=== PATIENT | female | born 2000 | race Caucasian/White ===

== ENCOUNTER 2025-02-12 06:36 | Inpatient (IN) | payer MEDICAID, SELFPAY ==
[2025-02-12] VITALS (41 sets, daily range): BP systolic 97–141; BP diastolic 37–81; PULSE 66–97; RESP 16–18; O2SAT 96–100; BMI 32.0
[2025-02-12 06:19] LABS: Hematocrit 41.0 % (36-47); Hemoglobin 13.70 g/dL (11.27-16.99); Mean Corpuscular HGB Conc 33.4 g/dL (30-55); Mean Corpuscular Hemoglobin 31.5 pg (27-33); Mean Corpuscular Volume 94.3 fl (85-98); Nucleated Red Blood Cells % 0.1 %; Platelet Count 431 10^3/cmm (157-399); Red Blood Count 4.35 10^6/uL (3.85-5.65); White Blood Count 15.67 10^3/uL (3.29-11.43)
--- NOTE | 2025-02-12 06:52 | PM.OBGYHP ---
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 Upon arrival at the hospital she was found to be in breech position. She also is known to be heterozygous for factor V Leiden deficiency. Her is otherwise been unremarkable. She received care in [place] at [facility] She states that she has had consistent care, and that otherwise there have been no complications. Thankfully she had access to her portal and we able to see her labs. Her blood type is O+. She is antibody negative. She is GBS negative. She is rubella immune. She hepatitis B negative. She is GC chlamydia negative. RPR negative. Hepatitis C negative. HIV negative. She does smoke occasionally. 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 Review of Systems General: Reports: 10 or more systems reviewed and unremarkable except in HPI and below Const: Reports: fatigue; Denies: fever(s) Eyes: Denies: change in vision Card: Denies: chest pain Musc: Reports: back pain Aaron/Lymph: Denies: easy bruising Medications/Allergies Home Medications ?Medication ?Instructions ?Recorded ?Confirmed ?Last Taken ?Type enoxaparin 40 mg/0.4 mL 40 mg SUBCUT DAILY 02/12/25 02/12/25 02/11/25 History subcutaneous syringe (Lovenox) sertraline 100 mg tablet 100 mg PO DAILY 02/12/25 02/12/25 Unknown History Vitals/I&O/Wt Last Vital Signs Pulse 70 02/12/25 05:46 BP 141/81 02/12/25 05:46 Physical Exam Const: COMMON NORMALS: patient oriented x3 and alert HENMT: COMMON NORMALS: moist oral mucous membranes HEAD & SCALP: normal to inspection Chest: COMMONS NORMALS: normal inspection of the chest Resp: COMMON NORMALS: clear to auscultation bilaterally AUSCULTATION: clear to auscultation bilaterally Cardio: COMMON NORMALS: regular rate and regular rhythm RATE: regular rate RHYTHM: regular rhythm GI: INSPECTION: Yes normal to inspection and Yes other (Gravid) Extremity: COMMON NORMALS: normal to inspection GENERAL: Yes edema (Trace) Neuro: COMMON NORMALS: patient oriented x3, moves all extremities and no sensory deficits noted SENSORIUM/ORIENTATION: Yes alert Psych: COMMON NORMALS: mental status grossly normal Skin: COMMON NORMALS: no rashes or lesions noted GENERAL SKIN EXAM: no rashes or lesions noted Data 02/12/25 06:01 Results Labs OB ([facility]): Blood Type O Positive Today Antibody Screen Negative Today Hct, (36-47) 41.0 % Today Hgb, (11.27-16.99) 13.70 g/dL Today Rho(D) Type Rh positive Today Plt Count, (157-399) 431 10^3/cmm H Today A&P Assessment and plan 1. 38 weeks gestation of : We will proceed with a section. We discussed the risk of bleeding, infection, and damage to intra-abdominal organs. They understand that her risk of bleeding is higher because she is currently on Lovenox and has been less than 12 hours since her last dose. They also understand that she is also high risk for blood clots. Because she has had recent Lovenox so she will not be a candidate for a spinal. She will require general anesthesia. 2. Spontaneous rupture of membranes: 3. Heterozygous factor V Leiden affecting in third trimester, antepartum: 4. Breech presentation: PDMP PDMP Reviewed: Not Reviewed Attestations Medical Necessity Statement*: I anticipate routine and post care. If she has any hemorrhage or bleeding concerns that could change the length of her hospital stay Coding Level of Care Code Acute Code for Chg Fwd Diagnoses 38 weeks gestation of Z3A.38 Spontaneous rupture of membranes Heterozygous factor V Leiden affecting in third trimester, antepartum O99.113; D68.51 Breech presentation O32.1XX0
--- NOTE | 2025-02-12 07:28 | ANES.PREANE2 ---
Pre-Anesthetic Assessment Height/Weight: Pulse BP O2 Del Method 70 141/81 Room Air 02/12/25 05:46 02/12/25 05:46 02/12/25 06:06 Preop Diagnosis: Active labor Was Beta Rogelio taken within 24 hours: N/A Was Clonidine taken within 24 hours: N/A Social No alcohol and No tobacco Exam alert, oriented x 3, clear to auscultation bilaterally and regular rate & rhythm Airway Submandibular: within normal limits Cervical ROM: within normal limits Mallampati: Class II Dentition: full Anesthetic Plan ASA status: 3E Anesthesia: General Other: No prior issues with anesthesia, states she has never had anesthesia , states she lost her first baby at 16 weeks Patient has heterozygous alleles for factor V Leiden. Dad status is unknown. Patient has been on subcu Lovenox 40 mg daily. Patient's last dose was at 8 PM Denies any cardiac or pulmonary issues Takes Zoloft for anxiety Labs reviewed and acceptable for procedure Type and screen performed Due to increased risk from Lovenox usage, plan for GETA with RSI Medications/Allergies Home Medications ?Medication ?Instructions ?Recorded ?Confirmed ?Last Taken ?Type enoxaparin 40 mg/0.4 mL 40 mg SUBCUT DAILY 02/12/25 02/12/25 02/11/25 History subcutaneous syringe (Lovenox) Data Anesthesia 02/12/25 06:01 Short CBC 02/12/25 Range/Units 06:01 WBC 15.67 H (3.29-11.43) 10^3/uL Hgb 13.70 (11.27-16.99) g/dL Hct 41.0 (36-47) % MCV 94.3 (85-98) fl Plt Count 431 H (157-399) 10^3/cmm Neut % (Auto) 56.8 % Neut # (Auto) 8.89 H (1.8-7.7) 10^3/uL Blood Bank 02/12/25 06:01 Blood Type O Positive Rho(D) Type Rh positive Antibody Screen Negative
--- NOTE | 2025-02-12 07:48 | PM.NBADM ---
[place] Information information: Most Recent Weight: 74.389 kg Height: 1.52 m A&P PDMP PDMP Reviewed: Not Reviewed Coding Level of Care Code Acute Code for Chg Fwd
--- NOTE | 2025-02-12 08:09 | PM.OP ---
Operative Report Date of procedure: February 12, 2025 Pre-op diagnosis: 1. 24-year-old 1 para 0-0-1-0 at 38 weeks estimated gestational age presenting with spontaneous rupture membranes and breech presentation 2. Heterozygous factor V Leiden deficiency currently on Lovenox at 40 mg daily Post-op diagnosis: Status post low-transverse section Procedure done: Lower transverse section Specimens removed/disposition: 1. Female with a weight of 6 pounds 11 ounces and Apgars of 8, 9 2. Placenta with a three-vessel cord delivered intact. Surgeon: Eder Saavedra MD Estimated blood loss (mL): 600 Procedure: The patient was brought back to the operating room where she was prepped and draped in usual sterile fashion. Anesthesia was found to be adequate. A lower transverse skin incision was then made with a #10 blade. I then dissected down to the underlying subcutaneous tissue until arriving at the prerectal fascia. The fascia was then nicked with the scalpel bilaterally. The fascial incisions were then carried laterally with Logan scissors. Attention was then turned to the superior aspect of the incision which was grasped with kochers and tented up away from the underlying rectus abdominis muscles. The muscles were then dissected away from the fascia manually, and later with Logan scissors. Attention was then turned to the inferior aspect of the incision, and the fascia was dissected away from the underlying muscle in similar fashion. The rectus abdominis muscles were then spread manually. The peritoneum was entered manually. Excellent visualization of the uterus was noted. A lower transverse uterine incision was then made with a #10 blade. Upon arriving at the intrauterine cavity, the uterine incision was then extended manually. The was noted to be in footling breech position. The baby was delivered without difficulty. There was a nuchal cord x 1. The baby was completely delivered and placed on the abdomen. The cord was then cut and clamped, and the baby was then handed to Dr. Perkins in the waiting nurse. The placenta was removed intact. The uterus was externalized. The intrauterine cavity was cleansed of any remaining debris. The uterine incision was reapproximated in 2 layers. The first layer was performed with 0 Vicryl in a running locked stitch. The second layer was an imbricating stitch also using 0 Vicryl. Finally, a single [id number] stitch was placed at the left angle of the incision. Excellent hemostasis was obtained. The uterus continued to be boggy, and we elected to treat her with Hemabate. The uterus then improved and was firm and no further bleeding was noted. The uterus was replaced into the abdomen. The peritoneum was then irrigated with warm saline. I reexamined the uterine incision and found it to be hemostatic. The rectus abdominis muscles were then reapproximated using 0 Vicryl in a running stitch. The fascia was then reapproximated using 0 Vicryl in running stitch. The subcutaneous tissue was also reapproximated using 0 Vicryl in a running stitch. The skin was reapproximated using miguel. A sterile dressing was placed. All counts were correct x2. Both the mother and baby were in stable condition.
[2025-02-12] MEDS: morphine 4 mg/mL SDV 1 mL IVP ×3 (08:45→20:20)
[2025-02-12] MEDS: oxyCODONE-APAP 5-325 mg Tablet PO ×2 (10:43→16:40)
[2025-02-12 12:30] LABS: Hematocrit 38.0 % (36-47); Hemoglobin 12.70 g/dL (11.27-16.99); Mean Corpuscular HGB Conc 33.4 g/dL (30-55); Mean Corpuscular Hemoglobin 31.3 pg (27-33); Mean Corpuscular Volume 93.6 fl (85-98); Nucleated Red Blood Cells % 0 %; Platelet Count 398 10^3/cmm (157-399); Red Blood Count 4.06 10^6/uL (3.85-5.65); White Blood Count 26.87 10^3/uL (3.29-11.43)
[2025-02-12 20:32] LABS: Hematocrit 32.2 % (36-47); Hemoglobin 10.90 g/dL (11.27-16.99); Mean Corpuscular HGB Conc 33.9 g/dL (30-55); Mean Corpuscular Hemoglobin 31.1 pg (27-33); Mean Corpuscular Volume 92.0 fl (85-98); Platelet Count 368 10^3/cmm (157-399); Red Blood Count 3.50 10^6/uL (3.85-5.65); White Blood Count 21.20 10^3/uL (3.29-11.43)
--- NOTE | 2025-02-12 22:48 | PC.NURSE ---
urinary catheter removed on 02/12/25 @ 2230, Pt tolerated well
[2025-02-13] VITALS (7 sets, daily range): BP systolic 113–127; BP diastolic 55–63; PULSE 88–118; RESP 16; TEMP 36.4–36.6
[2025-02-13] MEDS: oxyCODONE-APAP 5-325 mg Tablet PO ×4 (00:16→16:52)
[2025-02-13] MEDS: PRENATAL VIT NO.130/IRON/FOLIC 1 EACH TABLET PO (05:51)
--- NOTE | 2025-02-13 07:51 | PM.OBGYDC ---
Discharge Providers FINANCE CONSULTANT Date of Admission: 02/12/25 06:36 Date of Discharge: 02/13/25 Attending Provider at Admission: Eder Saavedra MD Attending Provider at Discharge: Eder Saavedra MD Diagnoses at Discharge Discharge Diagnosis 1. 38 weeks gestation of : 2. Spontaneous rupture of membranes: 3. Heterozygous factor V Leiden affecting in third trimester, antepartum: 4. Breech presentation: Reason for Visit Reason for Visit: pos srom Hospital Course Hospital Course The patient arrived to the hospital with spontaneous rupture membranes. Upon examination the patient was also found to be breech presentation. It been less than 12 hours since her last Lovenox injection so she was placed under general anesthesia to perform a lower transverse section. The was unremarkable. Her course has also been unremarkable. Her bleeding has been within normal limits. She been breast-feeding well. She has passed gas. She is tolerating regular diet. She has been ambulating appropriately. Information Peripartum Data: Infant Delivery Method: Physical Exam Narrative: The patient is alert. She appears comfortable. Her heart has a regular rate and rhythm with no murmurs appreciated. Lungs are clear to auscultation bilaterally. Her fundus is firm and below the umbilicus. Discharge Data Studies Completed and Pending Pending at discharge Category Date Time Status High Risk PP Hemorrhage Stat Lab 02/12/25 07:19 Received Laboratory Results WBC 21.20 10^3/uL (3.29-11.43) H 02/12/25 20:15 RBC 3.50 10^6/uL (3.85-5.65) L 02/12/25 20:15 Hgb 10.90 g/dL (11.27-16.99) L 02/12/25 20:15 Hct 32.2 % (36-47) L 02/12/25 20:15 MCV 92.0 fl (85-98) 02/12/25 20:15 MCH 31.1 pg (27-33) 02/12/25 20:15 MCHC 33.9 g/dL (30-55) 02/12/25 20:15 RDW 13.4 % (12.1-15.1) 02/12/25 20:15 Plt Count 368 10^3/cmm (157-399) 02/12/25 20:15 MPV 10.1 fL (7.4-10.4) 02/12/25 20:15 Neut % (Auto) 83.8 % 02/12/25 12:20 Lymph % (Auto) 10.0 % 02/12/25 12:20 Pitkin % (Auto) 5.0 % 02/12/25 12:20 Eos % (Auto) 0.1 % 02/12/25 12:20 Baso % (Auto) 0.2 % 02/12/25 12:20 Neut # (Auto) 22.52 10^3/uL (1.8-7.7) H 02/12/25 12:20 Lymph # (Auto) 2.7 10^3/uL (0.8-4.8) 02/12/25 12:20 Pitkin # (Auto) 1.3 10^3/uL (0.2-0.9) H 02/12/25 12:20 Eos # (Auto) 0.0 10^3/uL (0.0-0.8) 02/12/25 12:20 Baso # (Auto) 0.1 10^3/uL (0.0-0.1) 02/12/25 12:20 Nucleated RBC % (auto) 0 % 02/12/25 12:20 Nucleated RBCs # 0.0 /100WBC 02/12/25 12:20 Blood Type O Positive 02/12/25 06:01 Rho(D) Type Rh positive 02/12/25 06:01 Antibody Screen Negative 02/12/25 06:01 Vitals Last Vital Signs Pulse 88 02/13/25 05:51 Resp 16 02/13/25 05:51 BP 114/55 02/13/25 05:51 Pulse Ox 96 02/12/25 20:22 O2 Del Method Room Air 02/12/25 08:30 Results Labs OB ([facility]): Blood Type O Positive 02/12/25 Antibody Screen Negative 02/12/25 Hct, (36-47) 32.2 % L 02/12/25 Hgb, (11.27-16.99) 10.90 g/dL L 02/12/25 Rho(D) Type Rh positive 02/12/25 Plt Count, (157-399) 368 10^3/cmm 02/12/25 Discharge Plan Discharge Patient Disposition: Home Condition: Stable Prescriptions: New oxycodone-acetaminophen 5-325 mg Tablet 1 tab PO Q6H PRN (Reason: Moderate To Severe Pain) Qty: 28 0RF Continued enoxaparin [Lovenox] 40 mg/0.4 mL Syringe 40 mg SUBCUT DAILY sertraline 100 mg Tablet 100 mg PO DAILY Referrals: Eder Saavedra MD [Physician, Family Practice] - 02/20/25 Discharge Diet: Usual diet Discharge Activity: Limit activity as instructed Patient Instructions: Opioid Safety, Patient Portal & Gag[place]ep Instructions Discharge Attestations FINANCE CONSULTANT Time Spent in Discharge Care*: less than 30 min Time Spent in Smoking Cessation: Details of Smoking Cessation Education: We discussed the importance of minimizing smoking, and if possible quitting smoking completely, especially while recovering from surgery. We discussed the risk of surgical complications being increased as result of smoking. Coding Level of Care Code Acute Code for Chg Fwd Diagnoses 38 weeks gestation of Z3A.38 Spontaneous rupture of membranes Heterozygous factor V Leiden affecting in third trimester, antepartum O99.113; D68.51 Breech presentation O32.1XX0
[2025-02-13] MEDS: ferrous sulfate EC 325 mg Tablet PO (10:47)
[2025-02-14 02:59] LABS: High Risk PP Hemorrhage BBK Notified
[2025-02-18] VITALS (23 sets, daily range): BP systolic 113–124; BP diastolic 58–64; PULSE 96–109; O2SAT 92–98
[2025-02-19] VITALS (28 sets, daily range): BP systolic 109–122; BP diastolic 56–65; PULSE 93–115; O2SAT 94–97
== END 2025-02-13 18:05 | disposition home or self-care (01) | DRG 540 ==
LOC: OPOB 02-14 07:28
PROVIDERS: Admitting Provider Family Medicine; Visit Provider Family Medicine
PROC: 10D00Z1 Extraction of Products of Conception, Low, Open Approach (ICD-10-PCS; CPT 59514; principal; 2025-02-12 07:00)
DX: O32.8XX0 Maternal care for other malpresentation of fetus, not applicable or unspecified (principal); O99.12 Other diseases of the blood and blood-forming organs and certain disorders involving the immune mechanism complicating childbirth; D68.51 Activated protein C resistance; O69.81X0 Labor and delivery complicated by cord around neck, without compression, not applicable or unspecified; Z3A.38 38 weeks gestation of pregnancy; Z37.0 Single live birth
CPT/HCPCS: 36415; 59409; 83986; 85025; 85027; 86850; 86900; 96372; 96374; J0330; J1100; J1650; J2270; J2704; J3010; J7121; J9999